=== PATIENT | female | born 1955 | race Hispanic/Latino ===

== ENCOUNTER 2017-03-30 08:41 | Day surgery (SDC) | payer OTHER ==
[~2017-03-30] VITALS: Ht 149.9 cm; Wt 71.0 kg
[~2017-03-30 08:41] MED LIST: ALOG25TA2 PO; DICL25TA9 PO; ERGO500014 PO; FENTANYL CITRATE PF 50 MCG/1 ML 2ML VIAL ONE; FISH1CAP27 PO; LOSA25TA21 PO; METO50TA18 PO; MIDAZOLAM HCL 1 MG/ML 2ML VIAL ONE; PANT40TA25 PO; PROPOFOL 10 MG/ML 20ML VIAL IV ONE; ROSU10TA35 PO; SODIUM CHLORIDE 0.9% 1000ML 1,000 ML IV ONE
[2017-03-30] MEDS ORDERED: ISOVUE-370 50ML VIAL IV ONE (09:25)
[2017-03-30 09:30] VITALS: BP 145/71
[2017-03-30] MEDS ORDERED: PROPOFOL 10 MG/ML 20ML VIAL IV ONE (10:08)
[2017-03-30] MEDS ORDERED: FENTANYL CITRATE PF 50 MCG/1 ML 2ML VIAL ONE (10:10)
[2017-03-30] MEDS ORDERED: MIDAZOLAM HCL 1 MG/ML 2ML VIAL ONE (10:13)
[2017-03-30 10:25] VITALS: BP 71/27
== END 2017-03-30 11:45 | disposition home or self-care (01) ==
LOC: DAH 08:41 → ENDO 08:41
PROVIDERS: ATTEND Internal Medicine
DX: K83.8 Other specified diseases of biliary tract (principal); I10 Essential (primary) hypertension; E78.5 Hyperlipidemia, unspecified; K21.0 Gastro-esophageal reflux disease with esophagitis; E11.9 Type 2 diabetes mellitus without complications; E66.9 Obesity, unspecified; F41.9 Anxiety disorder, unspecified; Z90.49 Acquired absence of other specified parts of digestive tract; Z68.31 Body mass index [BMI] 31.0-31.9, adult
CPT/HCPCS: 43237; 82948 ×2; 93005; A4606; J2250 ×2; J2704 ×2; J3010 ×2; J7030; 43231; Q9967